=== PATIENT | female | born 1995 | race Hispanic/Latino ===

== ENCOUNTER 2021-05-03 22:28 | Emergency (ER) | payer OTHER ==
[~2021-05-03] VITALS: Ht 170.2 cm; Wt 72.1 kg
[2021-05-03] MEDS ORDERED: GNP28TAB2 PO (22:37)
[2021-05-04] MEDS ORDERED: MULTIVITAMIN -ADULT INJECTION 10 ML, THIAMINE INJection 100 MG, FOLIC ACID 1 MG in NS 1... IV ONE (06:55)
[2021-05-04] MEDS ORDERED: ONDANSETRON 4MG/2ML VIAL IV ONE (06:55)
[2021-05-04 06:58] LABS: BASO % 0.4 % (0.0-1.0); EOS # 0.1 10^3/uL (0.0-0.5); EOS % 0.8 % (0.0-3.0); HEMATOCRIT 38.2 % (36.0-47.0); HEMOGLOBIN 12.7 g/dl (12.0-15.5); LYMPH # 1.6 10^3/uL (1.5-5.0); LYMPH % 15.8 % (24.0-44.0); MEAN CORPUSCULAR HEMOGLOBIN 27.3 pg (27.0-33.0); MEAN CORPUSCULAR HGB CONC 33.2 g/dl (32.0-36.5); MEAN CORPUSCULAR VOLUME 82.2 fl (80.0-96.0); MONO # 0.7 10^3/uL (0.0-0.8); MONO % 6.9 % (2.0-8.0); NEUTROPHILS # 7.7 10^3/uL (1.5-8.5); NEUTROPHILS % 75.7 % (36.0-66.0); PLATELET COUNT, AUTOMATED 288 10^3/uL (150-450); RED BLOOD COUNT 4.65 10^6/uL (4.00-5.40); WHITE BLOOD COUNT 10.2 10^3/uL (4.0-10.0)
[2021-05-04 08:07] LABS: ALBUMIN 3.6 GM/DL (3.2-5.2); ALT/SGPT 39 U/L (12-78); BILIRUBIN,DIRECT 0.1 MG/DL (0.0-0.2); BILIRUBIN,TOTAL 0.3 MG/DL (0.2-1.0); BLOOD UREA NITROGEN 8 MG/DL (7-18); CALCIUM LEVEL 9.2 MG/DL (8.5-10.1); CARBON DIOXIDE LEVEL 25 MEQ/L (21-32); CHLORIDE LEVEL 105 MEQ/L (98-107); CREATININE FOR GFR 0.51 MG/DL (0.55-1.30); GLOMERULAR FILTRATION RATE > 60.0 (>60); GLUCOSE, FASTING 78 MG/DL (70-100); HCG, SERUM QUANTITATIVE 222540 MIU/ML; LIPASE 62 U/L (73-393); POTASSIUM SERUM 3.6 MEQ/L (3.5-5.1); SODIUM LEVEL 141 MEQ/L (136-145); TOTAL PROTEIN 7.4 GM/DL (6.4-8.2)
[2021-05-04] MEDS ORDERED: ONDA4TAB6 PO (10:38)
[2021-05-04 11:03] VITALS: BP 110/69
== END 2021-05-04 11:00 | disposition home or self-care (01) ==
LOC: M ED 22:28
DX: O21.0 Mild hyperemesis gravidarum (principal); Z88.8 Allergy status to other drugs, medicaments and biological substances; Z3A.01 Less than 8 weeks gestation of pregnancy
CPT/HCPCS: 80048; 80076; 81001; 83690; 84702; 85025; 96361; 96374; 99284; J2405; J3411

== ENCOUNTER 2021-05-17 09:50 | Emergency (ER) | payer OTHER ==
[~2021-05-17] VITALS: Ht 170.2 cm; Wt 69.1 kg
[~2021-05-17 09:50] MED LIST: GNP28TAB2 PO; ONDA4TAB6 PO
[2021-05-17] MEDS ORDERED: NS 1,000 ML IV ONE (10:30)
[2021-05-17] MEDS ORDERED: ONDANSETRON 4MG/2ML VIAL IV ONE (10:30)
[2021-05-17 13:19] LABS: BASO % 0.3 % (0.0-1.0); EOS # 0.1 10^3/uL (0.0-0.5); EOS % 0.6 % (0.0-3.0); HEMATOCRIT 36.6 % (36.0-47.0); HEMOGLOBIN 12.2 g/dl (12.0-15.5); LYMPH # 1.5 10^3/uL (1.5-5.0); LYMPH % 15.5 % (24.0-44.0); MEAN CORPUSCULAR HEMOGLOBIN 27.5 pg (27.0-33.0); MEAN CORPUSCULAR HGB CONC 33.3 g/dl (32.0-36.5); MEAN CORPUSCULAR VOLUME 82.6 fl (80.0-96.0); MONO # 0.7 10^3/uL (0.0-0.8); MONO % 7.3 % (2.0-8.0); NEUTROPHILS # 7.3 10^3/uL (1.5-8.5); NEUTROPHILS % 76.1 % (36.0-66.0); PLATELET COUNT, AUTOMATED 243 10^3/uL (150-450); RED BLOOD COUNT 4.43 10^6/uL (4.00-5.40); WHITE BLOOD COUNT 9.6 10^3/uL (4.0-10.0)
[2021-05-17 13:31] LABS: BLOOD UREA NITROGEN 8 MG/DL (7-18); CALCIUM LEVEL 9.1 MG/DL (8.5-10.1); CARBON DIOXIDE LEVEL 25 MEQ/L (21-32); CHLORIDE LEVEL 108 MEQ/L (98-107); CREATININE FOR GFR 0.51 MG/DL (0.55-1.30); GLOMERULAR FILTRATION RATE > 60.0 (>60); GLUCOSE, FASTING 82 MG/DL (70-100); POTASSIUM SERUM 3.9 MEQ/L (3.5-5.1); SODIUM LEVEL 140 MEQ/L (136-145)
[2021-05-17 13:32] LABS: HCG, SERUM QUANTITATIVE 263551 MIU/ML
[2021-05-17 13:48] VITALS: BP 117/59
== END 2021-05-17 14:09 | disposition home or self-care (01) ==
LOC: M ED 09:50
DX: O21.0 Mild hyperemesis gravidarum (principal); Z3A.09 9 weeks gestation of pregnancy; Z88.8 Allergy status to other drugs, medicaments and biological substances; Z91.018 Allergy to other foods
CPT/HCPCS: 80048; 81001; 84702; 85025; 96361; 96374; 99284; J2405

== ENCOUNTER 2021-06-04 12:00 | Emergency (ER) | payer OTHER ==
[~2021-06-04] VITALS: Ht 170.2 cm; Wt 65.6 kg
[2021-06-04] MEDS ORDERED: NS 1,000 ML IV ONE (13:15)
[2021-06-04] MEDS ORDERED: ONDANSETRON 4MG/2ML VIAL IV ONE (13:15)
[2021-06-04 13:43] LABS: BASO % 0.1 % (0.0-1.0); EOS # 0.1 10^3/uL (0.0-0.5); EOS % 0.5 % (0.0-3.0); HEMATOCRIT 40.3 % (36.0-47.0); HEMOGLOBIN 13.5 g/dl (12.0-15.5); LYMPH % 11.2 % (24.0-44.0); MEAN CORPUSCULAR HEMOGLOBIN 27.2 pg (27.0-33.0); MEAN CORPUSCULAR HGB CONC 33.5 g/dl (32.0-36.5); MEAN CORPUSCULAR VOLUME 81.3 fl (80.0-96.0); MONO # 0.4 10^3/uL (0.0-0.8); MONO % 4.8 % (2.0-8.0); NEUTROPHILS # 7.7 10^3/uL (1.5-8.5); NEUTROPHILS % 83.1 % (36.0-66.0); PLATELET COUNT, AUTOMATED 290 10^3/uL (150-450); RED BLOOD COUNT 4.96 10^6/uL (4.00-5.40); WHITE BLOOD COUNT 9.3 10^3/uL (4.0-10.0)
[2021-06-04 14:16] LABS: ALBUMIN 3.4 GM/DL (3.2-5.2); ALT/SGPT 96 U/L (12-78); BILIRUBIN,DIRECT 0.2 MG/DL (0.0-0.2); BILIRUBIN,TOTAL 0.5 MG/DL (0.2-1.0); BLOOD UREA NITROGEN 7 MG/DL (7-18); CALCIUM LEVEL 9.5 MG/DL (8.5-10.1); CARBON DIOXIDE LEVEL 23 MEQ/L (21-32); CHLORIDE LEVEL 105 MEQ/L (98-107); CREATININE FOR GFR 0.42 MG/DL (0.55-1.30); FREE T4 1.62 NG/DL (0.76-1.46); GLOMERULAR FILTRATION RATE > 60.0 (>60); GLUCOSE, FASTING 75 MG/DL (70-100); LIPASE 102 U/L (73-393); POTASSIUM SERUM 3.9 MEQ/L (3.5-5.1); SODIUM LEVEL 138 MEQ/L (136-145); THYROID STIMULATING HORMONE < 0.005 uIU/ML (0.358-3.740); TOTAL PROTEIN 7.3 GM/DL (6.4-8.2)
[2021-06-04] MEDS ORDERED: MULTIVITAMIN -ADULT INJECTION 10 ML, THIAMINE INJection 100 MG, FOLIC ACID 1 MG in NS 1... IV ONE (14:30)
--- NOTE | 2021-06-04 15:06 | REP ---
INDICATION: RUQ pain, vomiting after eating. COMPARISON: None. TECHNIQUE: Right upper quadrant sonography. FINDINGS: Scanning through the right upper quadrant the abdomen demonstrates a normal sized and walled gallbladder containing echogenic sludge and a tiny gravel-like mobile foci consistent with gravel-like stones. Common bile duct is normal measuring 0.2 cm in greatest diameter. No pericholecystic fluid is seen no gallbladder wall thickening is seen. No focal liver lesion is observed. There is no evidence of ascites. No right renal abnormality. Right kidney measures 10.7 x 5.3 x 3.8 cm. IMPRESSION: Sludge and tiny gravel-like stones suspected in the gallbladder. Normal CBD. <Electronically signed by Russ Calvin > 06/04/21 [id number]
--- NOTE | 2021-06-04 15:08 | REP ---
INDICATION: n/v , no vaginal bleeding. COMPARISON: None. TECHNIQUE: Transabdominal obstetric sonography. First trimester study. FINDINGS: Scanning through the urine filled bladder demonstrates a single living intrauterine gestation in a free-floating lie. heart rate is recorded at 174 beats per minute. The crown-rump length of the embryonic pole is 65 mm. This corresponds with a gestational age estimate of 12 weeks 6 days. A posterior placenta is seen with no evidence of previa. Closed cervical length is 3.2 cm. No complication is seen. No extra uterine abnormality is observed. IMPRESSION: Single living intrauterine gestation at 12 weeks 6 days by crown-rump length. LISSETT by sonography 11 December 2021. no complication is seen. <Electronically signed by Russ Calvin > 06/04/21 [id number]
[2021-06-04] MEDS ORDERED: PROMETHAZINE INJ 25 MG/ML VIAL (J2550) IV ONE (15:15)
[2021-06-04] MEDS ORDERED: PROC25SU24 PR (16:21)
[2021-06-04] MEDS ORDERED: PEPC1TAB5 PO (16:25)
[2021-06-04 16:50] LABS: APPEARANCE, URINE HAZY (CLEAR); BACTERIA, URINE AUTO NEGATIVE (NEGATIVE); BILIRUBIN, URINE AUTO NEGATIVE (NEGATIVE); BLOOD, URINE BLOOD NEGATIVE (NEGATIVE); COLOR, URINE YELLOW (YELLOW); GLUCOSE, URINE (UA) AUTO NEGATIVE (NEGATIVE); KETONE, URINE AUTO 2+ mg/dL (NEGATIVE); LEUKOCYTE ESTERASE, URINE AUTO NEGATIVE (NEGATIVE); MUCUS, URINE SMALL (NEGATIVE); NITRITE, URINE AUTO NEGATIVE (NEGATIVE); PROTEIN, URINE AUTO 2+ mg/dL (NEGATIVE); RBC, URINE AUTO 0 /HPF (0-3); SPECIFIC GRAVITY URINE AUTO 1.026 (1.002-1.035); SQUAMOUS EPITHELIAL CELL UR AU 2 /HPF (0-6); WBC, URINE AUTO 1 /HPF (0-3)
[2021-06-04 18:20] VITALS: BP 109/57
--- NOTE | 2021-06-07 16:30 | ECGEPIP ---
[facility] - ED Test Date: 2021-06-04 Pat Name: ALAINA LUNDY Department: Room: - Gender: Female [employer]: : [id number] Requested By: STEPHAN Hooper PA-C Order Number: [id number] Reading MD: Inez Francisco Measurements Intervals [place] Rate: 88 P: 66 WY: 130 QRS: 46 QRSD: 82 T: 27 QT: 376 QTc: 454 Interpretive Statements Normal sinus rhythm with sinus arrhythmia NSTTW abnormalities No prior Electronically Signed on 06-07-2021 16:29:59 EDT by Inez Francisco
== END 2021-06-04 18:24 | disposition home or self-care (01) ==
LOC: M ED 12:00
DX: O21.0 Mild hyperemesis gravidarum (principal); O99.891 Other specified diseases and conditions complicating pregnancy; R94.6 Abnormal results of thyroid function studies; O99.619 Diseases of the digestive system complicating pregnancy, unspecified trimester; K80.20 Calculus of gallbladder without cholecystitis without obstruction; Z3A.00 Weeks of gestation of pregnancy not specified; Z79.899 Other long term (current) drug therapy; Z88.8 Allergy status to other drugs, medicaments and biological substances; Z91.013 Allergy to seafood; Z87.19 Personal history of other diseases of the digestive system
CPT/HCPCS: 76705; 76801; 80048; 80076; 81001; 83690; 84439; 84443; 85025; 87086; 93005; 96374; 96375; 99284; J2405; J3411

== ENCOUNTER 2021-12-08 13:33 | Inpatient (IN) | payer OTHER ==
[2021-12-08] VITALS (29 sets, daily range): BP systolic 99–140; BP diastolic 50–80
[~2021-12-08] VITALS: Ht 170.2 cm; Wt 79.0 kg
[~2021-12-08 13:33] MED LIST changes: +ACET1TAB55 PO; +PEPC1TAB5 PO; +PROC25SU24 PR
[2021-12-08] MEDS ORDERED: TUMS500C PO (13:50)
[2021-12-08] MEDS ORDERED: OMEP40CA4 PO (13:50)
[2021-12-08] MEDS ORDERED: LACTATED RINGER'S 1000 ML IV STA (14:02)
[2021-12-08] MEDS ORDERED: OXYTOCIN DRIP 30 UNITS in IV 1 EA IV PRN (14:05)
[2021-12-08] MEDS ORDERED: LIDOCAINE 1% MDV 20ML VIAL INFIL PRN (14:05)
[2021-12-08 14:52] LABS: HEMOGLOBIN 11.3 g/dl (12.0-15.5); MEAN CORPUSCULAR HEMOGLOBIN 26.3 pg (27.0-33.0); MEAN CORPUSCULAR HGB CONC 32.3 g/dl (32.0-36.5); MEAN CORPUSCULAR VOLUME 81.6 fl (80.0-96.0); PLATELET COUNT, AUTOMATED 243 10^3/uL (150-450); RED BLOOD COUNT 4.29 10^6/uL (4.00-5.40); WHITE BLOOD COUNT 11.2 10^3/uL (4.0-10.0)
[2021-12-08 15:12] LABS: GLUCOSE,RANDOM 62 MG/DL (LESS THAN 200)
[2021-12-08] MEDS: LR 1,000 ML IV SCH ×2 (15:28→23:39)
[2021-12-08] MEDS ORDERED: FENTANYL 2MCG/ML ROPIVACAINE 0.2% IN 0.9% NACL 100ML IVBAG As Ordered ONE (16:50)
[2021-12-08] MEDS ORDERED: ePHEDrine SULFATE 25 MG/5 ML(5MG/ML) SYRINGE IV PRN (17:00)
[2021-12-08] MEDS ORDERED: EPIDURAL/PCA KEYS XX PRN (17:00)
[2021-12-08] MEDS ORDERED: ONDANSETRON 4MG/2ML VIAL IV PRN (17:00)
[2021-12-08] MEDS ORDERED: REFRIGERATOR IV KEYS XX PRN (17:00)
[2021-12-08] MEDS ORDERED: LACTATED RINGER'S 1000 ML IV PRN (17:00)
[2021-12-08] MEDS ORDERED: EPIDURAL COMMENT XX SCH (17:00)
[2021-12-08] MEDS ORDERED: diphenhydrAMINE 50MG/ML VIAL (J1200) IV PRN (17:00)
[2021-12-08] MEDS ORDERED: NALOXONE INJ 0.4MG/1ML VIAL (J2310 PER 1MG) IV PRN (17:00)
[2021-12-08] MEDS: FENTANYL/ROPIVACAINE/NACL BAG 100 ML EPIDURAL SCH (17:36)
[2021-12-08] MEDS ORDERED: OXYTOCIN DRIP 30 UNITS in IV 1 EA IV SCH ×2 (22:25→23:00)
[2021-12-09] VITALS (13 sets, daily range): BP systolic 100–141; BP diastolic 57–77
[2021-12-09] MEDS: FENTANYL/ROPIVACAINE/NACL BAG 100 ML EPIDURAL SCH (00:57)
[2021-12-09] MEDS ORDERED: DOCUSATE SODIUM 100MG CAPSULE PO PRN (02:10)
[2021-12-09] MEDS ORDERED: RHOGAM 300 MCG (1500 IU) INJ (J2790) IM SCH (02:10)
[2021-12-09] MEDS ORDERED: IBUPROFEN 800 MG TAB PO PRN (02:10)
[2021-12-09] MEDS ORDERED: MOM 30ML SUSPENSION UDC PO PRN (02:10)
[2021-12-09] MEDS ORDERED: MEASLES,MUMPS,RUBELLA VACCINE INJ (MMR-II) (90707) SC SCH (02:10)
[2021-12-09] MEDS ORDERED: OXYTOCIN DRIP 30 UNITS in IV 1 EA IV SCH (02:10)
[2021-12-09] MEDS ORDERED: ONDANSETRON 4MG/2ML VIAL IV PRN (02:10)
[2021-12-09] MEDS ORDERED: METHYLERGONOVINE MALEATE 0.2 MG TAB PO PRN (02:10)
[2021-12-09] MEDS ORDERED: DIBUCAINE 1% OINTMENT 30GM TOP PRN (02:10)
[2021-12-09] MEDS ORDERED: ANUSOL HC CREAM 30GM TOP PRN (02:10)
[2021-12-09] MEDS: ACETAMINOPHEN 500 MG TAB PO PRN ×2 (05:27→14:34)
[2021-12-09] MEDS: PRENATAL VITAMINS CHEWABLE TABLET PO SCH (09:00)
[2021-12-09] MEDS ORDERED: oxyCODONE 5MG TAB PO ONE (10:15)
[2021-12-09] MEDS ORDERED: oxyCODONE 5MG TAB PO PRN (12:35)
[2021-12-09 13:11] LABS: HEMATOCRIT 28.5 % (36.0-47.0); MEAN CORPUSCULAR HEMOGLOBIN 25.8 pg (27.0-33.0); MEAN CORPUSCULAR HGB CONC 31.9 g/dl (32.0-36.5); MEAN CORPUSCULAR VOLUME 80.7 fl (80.0-96.0); PLATELET COUNT, AUTOMATED 214 10^3/uL (150-450); RED BLOOD COUNT 3.53 10^6/uL (4.00-5.40); WHITE BLOOD COUNT 14.4 10^3/uL (4.0-10.0)
[2021-12-09 13:22] LABS: HEMOGLOBIN 9.1 g/dl (12.0-15.5)
[2021-12-09 13:35] LABS: ALT/SGPT 20 U/L (12-78); BILIRUBIN,TOTAL 0.4 MG/DL (0.2-1.0); CREATININE FOR GFR 0.87 MG/DL (0.55-1.30); GLOMERULAR FILTRATION RATE > 60.0 (>60); LDH LACTATE DEHYDROGENASE 231 U/L (84-246); URIC ACID 7.1 MG/DL (2.6-6.0)
[2021-12-10 06:00] VITALS: BP 103/58
[2021-12-10] MEDS: PRENATAL VITAMINS CHEWABLE TABLET PO SCH (07:43)
[2021-12-10] MEDS: ACETAMINOPHEN 500 MG TAB PO PRN ×2 (07:44→14:58)
[2021-12-11] MEDS: ACETAMINOPHEN 500 MG TAB PO PRN ×2 (00:41→07:34)
[2021-12-11 06:00] VITALS: BP 110/64
[2021-12-11] MEDS: PRENATAL VITAMINS CHEWABLE TABLET PO SCH (07:22)
[2021-12-11] MEDS ORDERED: PRENCHW PO (07:24)
[2021-12-11] MEDS ORDERED: COLA100C5 PO (07:24)
== END 2021-12-11 13:10 | disposition home or self-care (01) | DRG 807 ==
LOC: M LDO 13:33 → M LDI 14:06 → M OBS 20:07 → M LDI 20:13 → M OBS 12-09 05:27
PROVIDERS: ADMIT Registered Nurse; ATTEND Obstetrics & Gynecology
PROC: 10E0XZZ Delivery of Products of Conception, External Approach (ICD-10-PCS; principal; 2021-12-09)
PROC: 0KQM0ZZ Repair Perineum Muscle, Open Approach (ICD-10-PCS; 2021-12-09)
DX: O24.420 Gestational diabetes mellitus in childbirth, diet controlled (principal); Z37.0 Single live birth; O99.344 Other mental disorders complicating childbirth; F32.A Depression, unspecified; Z3A.39 39 weeks gestation of pregnancy; O69.81X0 Labor and delivery complicated by cord around neck, without compression, not applicable or unspecified; O70.1 Second degree perineal laceration during delivery

== ENCOUNTER → 2022-05-11 | Outpatient (CLI) | payer OTHER ==
[~2022-05-11] MED LIST changes: +COLA100C5 PO; +OMEP40CA4 PO; +PRENCHW PO; +TUMS500C PO
== END ==
LOC: M WHC 07:43
PROVIDERS: ATTEND Registered Nurse
DX: N63.20 Unspecified lump in the left breast, unspecified quadrant (principal)

== ENCOUNTER 2022-06-08 06:41 | Emergency (ER) | payer OTHER ==
[~2022-06-08] VITALS: Ht 170.2 cm; Wt 83.8 kg
[2022-06-08 06:41] VITALS: BP 139/101
== END 2022-06-08 10:30 | disposition left against medical advice (07) ==
LOC: M ED 06:41
DX: Z53.29 Procedure and treatment not carried out because of patient's decision for other reasons (principal)

== ENCOUNTER → 2022-09-08 | Outpatient (REF) ==
[2022-09-08 15:18] LABS: RSV AMPLIFICATION NEGATIVE (NEGATIVE)
== END ==
LOC: M LABSMTC 10:28
PROVIDERS: ATTEND Family Medicine
DX: Z20.822 Contact with and (suspected) exposure to COVID-19 (principal)